=== PATIENT | male | born 1980 | race Caucasian/White ===

== ENCOUNTER 2024-04-12 09:28 | Inpatient (IN) | payer SELFPAY ==
[2024-04-12] MEDS: diazePAM CARPU-JECT 10 MG/2 ML DISP.SYRIN IVPUSH ONE ×2 (09:57→14:09)
[2024-04-12 10:49] LABS: BASO % 0.3 % (0-2.0); HEMATOCRIT 32.8 % (35.4-49); LYMPH % 12.6 % (8-40); MCH 30.3 pg (25.7-33.7); MCHC 33.4 g/dl (32.0-35.9); MEAN CELL VOLUME 90.7 fl (80-96); MEAN PLT VOLUME 9.4 fl (7.5-11.1); MONO % 13.1 % (3.8-10.2); PLATELET COUNT 122 10^3/uL (134-434); RBC 3.62 M/mm3 (4.00-5.60); RDW 19.6 % (11.9-15.9); WHITE BLOOD COUNT 9.5 K/mm3 (4.0-10.0)
[2024-04-12 10:59] LABS: INR 1.13 (0.83-1.09)
[2024-04-12 11:02] LABS: ACTIVATED PTT 27.8 SECONDS (25.2-36.5)
[2024-04-12 11:24] LABS: POTASSIUM 3.2 mmol/L (3.5-5.1)
[2024-04-12 11:26] LABS: ALBUMIN 4.4 g/dl (3.4-5.0); CALCIUM 9.7 mg/dL (8.5-10.1)
[2024-04-12 11:27] LABS: BLOOD UREA NITROGEN 17.7 mg/dL (7-18)
[2024-04-12 11:30] LABS: CREATININE 1.4 mg/dL (0.55-1.3)
[2024-04-12 11:31] LABS: BILIRUBIN,TOTAL 2.2 mg/dL (0.2-1)
[2024-04-12] MEDS: SODIUM CHLORIDE 0.9% 500 ML INFUS.BAG IV ONE (11:40)
[2024-04-12 11:46] LABS: MAGNESIUM 1.7 mg/dL (1.8-2.4)
[2024-04-12 13:04] LABS: VENOUS BASE EXCESS -5.2 mmol/L (-2-2); VENOUS PCO2 34.5 mmHg (38-52); VENOUS PH 7.369 (7.310-7.410)
[2024-04-12] MEDS ORDERED: THIAMINE HCL 200 MG/2 ML VIAL ONE (13:35)
[2024-04-12] MEDS ORDERED: diazePAM CARPU-JECT 10 MG/2 ML DISP.SYRIN ONE (13:35)
[2024-04-12] MEDS ORDERED: POTASSIUM CHLORIDE TABS 20 MEQ TABLET.ER (FP) PO ONE (13:36)
[2024-04-12] MEDS ORDERED: MAGNESIUM SULFATE IN WATER 2 GM/50 ML IVPB IVPB ONE (13:36)
[2024-04-12] MEDS ORDERED: FOLIC ACID 1 MG TABLET (FP) ONE (13:36)
[2024-04-12] MEDS: THIAMINE HCL 200 MG/2 ML VIAL IVPB ONE (14:09)
[2024-04-12] MEDS: MAGNESIUM SULF 50% (8.12 MEQ/2 ML-1 GM VIAL) IVPB ONE (14:09)
[2024-04-12] MEDS: POTASSIUM CHLORIDE TABS 20 MEQ TABLET.ER (FP) PO ONE ×2 (14:09→17:35)
[2024-04-12] MEDS: LACTATED RINGERS SOLUTION 1000 ML INFUS.BAG IV ONE (14:09)
[2024-04-12] MEDS: FOLIC ACID 1 MG TABLET (FP) PO ONE (14:09)
[2024-04-12 15:48] LABS: POTASSIUM 3.4 mmol/L (3.5-5.1)
[2024-04-12 15:50] LABS: BLOOD UREA NITROGEN 11.7 mg/dL (7-18); CALCIUM 8.9 mg/dL (8.5-10.1)
[2024-04-12 15:54] LABS: CREATININE 0.5 mg/dL (0.55-1.3)
[2024-04-12] MEDS: LACTATED RINGERS SOLUTION 1,000 ML/1,000 ML INFUS.BAG IV SCH (16:00)
[2024-04-12] MEDS: LORazepam 1 MG TABLET PO SCH (17:35)
[2024-04-12 17:56] VITALS: BMI 24.9
[2024-04-12] MEDS: THIAMINE HCL 200 MG/2 ML VIAL IVPB SCH (21:40)
[2024-04-12] MEDS: HEPARIN NA (PORCINE) 5,000 UNITS/ML 1ML VIAL SQ SCH (21:42)
[2024-04-13] MEDS: MULTIVITAMINS (DAILY MVI) TABLET (FP) PO SCH (10:14)
[2024-04-13] MEDS: FOLIC ACID 1 MG TABLET (FP) PO SCH (10:15)
[2024-04-13 10:52] LABS: POTASSIUM 3.2 mmol/L (3.5-5.1)
[2024-04-13 10:53] LABS: BASO % 0.9 % (0-2.0); EOS % 1.1 % (0-4.5); HEMATOCRIT 30.3 % (35.4-49); HEMOGLOBIN 9.9 GM/dL (11.7-16.9); LYMPH % 27.9 % (8-40); MCH 30.7 pg (25.7-33.7); MCHC 32.7 g/dl (32.0-35.9); MEAN PLT VOLUME 9.1 fl (7.5-11.1); NEUT % 53.1 % (42.8-82.8); PLATELET COUNT 91 10^3/uL (134-434); RBC 3.22 M/mm3 (4.00-5.60); RDW 19.8 % (11.9-15.9); WHITE BLOOD COUNT 3.4 K/mm3 (4.0-10.0)
[2024-04-13 10:54] LABS: ALBUMIN 3.8 g/dl (3.4-5.0); CALCIUM 8.9 mg/dL (8.5-10.1)
[2024-04-13 10:55] LABS: BLOOD UREA NITROGEN 9.7 mg/dL (7-18); MAGNESIUM 2.1 mg/dL (1.8-2.4)
[2024-04-13 10:58] LABS: CREATININE 0.5 mg/dL (0.55-1.3)
[2024-04-13 10:59] LABS: BILIRUBIN,TOTAL 1.1 mg/dL (0.2-1); TOT PROT 7.7 g/dl (6.4-8.2)
[2024-04-13] MEDS: PANTOPRAZOLE 40 MG TABLET PO SCH (12:11)
[2024-04-13] MEDS: POTASSIUM CHLORIDE TABS 10 MEQ TABLET.ER (FP) PO SCH (12:11)
[2024-04-13] MEDS: LACTULOSE 20 GM/30 ML UDC (FOR ORAL USE ONLY) PO PRN (12:11)
[2024-04-13 15:01] LABS: PH,URINE 6.5 (5.0-8.0); URINE APPEARANCE CLEAR; URINE BILIRUBIN NEGATIVE (NEGATIVE); URINE COLOR YELLOW; URINE GLUCOSE (UA) NEGATIVE (NEGATIVE); URINE KETONE 1+ (NEGATIVE); URINE LEUK ESTERASE NEGATIVE (NEGATIVE); URINE NITRITE NEGATIVE (NEGATIVE); URINE PROTEIN NEGATIVE (NEGATIVE)
[2024-04-13 15:11] LABS: METHADONE, UR NEGATIVE (NEGATIVE); OPIATES, URI NEGATIVE (NEGATIVE); URINE BARBITURATES NEGATIVE (NEGATIVE)
[2024-04-13 15:12] LABS: PHENCYCLIDINE,URINE NEGATIVE (NEGATIVE)
[2024-04-13 15:15] LABS: COCAINE, UR NEGATIVE (NEGATIVE); URINE AMPHETAMINES NEGATIVE (NEGATIVE); URINE BENZODIAZEPINES POSITIVE (NEGATIVE)
[2024-04-14] MEDS: LORazepam 1 MG TABLET PO SCH (06:49)
[2024-04-14 09:14] LABS: BASO % 1.3 % (0-2.0); EOS % 0.7 % (0-4.5); HEMATOCRIT 30.9 % (35.4-49); HEMOGLOBIN 10.2 GM/dL (11.7-16.9); LYMPH % 27.3 % (8-40); MCH 30.7 pg (25.7-33.7); MCHC 33.1 g/dl (32.0-35.9); MEAN CELL VOLUME 92.7 fl (80-96); MONO % 15.1 % (3.8-10.2); NEUT % 55.6 % (42.8-82.8); PLATELET COUNT 118 10^3/uL (134-434); RBC 3.33 M/mm3 (4.00-5.60); WHITE BLOOD COUNT 4.7 K/mm3 (4.0-10.0)
[2024-04-14 09:36] LABS: POTASSIUM 3.5 mmol/L (3.5-5.1)
[2024-04-14] MEDS: POTASSIUM CHLORIDE TABS 20 MEQ TABLET.ER (FP) PO SCH (09:43)
[2024-04-14 09:50] LABS: ALBUMIN 3.7 g/dl (3.4-5.0)
[2024-04-14 09:51] LABS: CALCIUM 9.3 mg/dL (8.5-10.1)
[2024-04-14 09:52] LABS: BLOOD UREA NITROGEN 4.9 mg/dL (7-18)
[2024-04-14 09:55] LABS: BILIRUBIN,TOTAL 0.8 mg/dL (0.2-1); CREATININE 0.5 mg/dL (0.55-1.3); TOT PROT 7.5 g/dl (6.4-8.2)
[2024-04-14] MEDS: THIAMINE 100 MG TABLET PO SCH (11:23)
[2024-04-14] MEDS: LORazepam 1 MG TABLET PO PRN (19:26)
[2024-04-15] MEDS ORDERED: LORazepam 0.5 MG TABLET PO PRN
[2024-04-15] MEDS: LORazepam 0.5 MG TABLET PO SCH (05:10)
[2024-04-15 10:33] LABS: BASO % 0.9 % (0-2.0); EOS % 0.2 % (0-4.5); HEMATOCRIT 33.2 % (35.4-49); HEMOGLOBIN 11.2 GM/dL (11.7-16.9); LYMPH % 25.8 % (8-40); MCH 31.3 pg (25.7-33.7); MCHC 33.7 g/dl (32.0-35.9); MEAN CELL VOLUME 93.1 fl (80-96); MEAN PLT VOLUME 9.7 fl (7.5-11.1); NEUT % 57.1 % (42.8-82.8); PLATELET COUNT 178 10^3/uL (134-434); RBC 3.57 M/mm3 (4.00-5.60)
[2024-04-15 10:45] LABS: POTASSIUM 3.6 mmol/L (3.5-5.1)
[2024-04-15 10:51] LABS: ALBUMIN 4.1 g/dl (3.4-5.0)
[2024-04-15 10:54] LABS: BLOOD UREA NITROGEN 10.7 mg/dL (7-18); CALCIUM 9.8 mg/dL (8.5-10.1); CREATININE 0.7 mg/dL (0.55-1.3)
[2024-04-15 10:55] LABS: BILIRUBIN,TOTAL 0.6 mg/dL (0.2-1); TOT PROT 8.6 g/dl (6.4-8.2)
[2024-04-15 11:52] LABS: ANISOCYTOSIS 1+; MACROCYTOSIS 1+
[2024-04-15] MEDS: LACTULOSE 20 GM/30 ML UDC (FOR ORAL USE ONLY) PO SCH (14:07)
[2024-04-15] MEDS: THIAMINE 100 MG TABLET PO SCH (21:50)
[2024-04-16] MEDS: LORazepam 0.5 MG TABLET PO ONE ×2 (05:32→13:33)
[2024-04-16] MEDS: THIAMINE 100 MG TABLET PO ONE (13:34)
[2024-04-16] MEDS ORDERED: THIAMINE HCL 200 MG/2 ML VIAL IVPB SCH (14:00)
[2024-04-16 14:45] VITALS: BP 106/77; PULSE 82; RESP 18; TEMP 98.8
== END 2024-04-16 15:00 | disposition home or self-care (01) | DRG 775 ==
LOC: JER 09:28 → JERBED 15:14 → OBSVTOIN 16:16 → J8W 17:01
PROVIDERS: ADMIT Internal Medicine; ATTEND Nurse Practitioner Family
DX: F10.251 Alcohol dependence with alcohol-induced psychotic disorder with hallucinations (principal); N17.9 Acute kidney failure, unspecified; F10.231 Alcohol dependence with withdrawal delirium; F10.239 Alcohol dependence with withdrawal, unspecified; K70.30 Alcoholic cirrhosis of liver without ascites; D69.6 Thrombocytopenia, unspecified; E51.2 Wernicke's encephalopathy; E87.1 Hypo-osmolality and hyponatremia; E87.6 Hypokalemia; E83.42 Hypomagnesemia; K76.82 Hepatic encephalopathy; D64.9 Anemia, unspecified; R41.82 Altered mental status, unspecified
CPT/HCPCS: 36415; 70450-TC; 71046-TC-FY; 74178-TC; 76705-TC; 80048; 80053; 80307; 81003; 82010; 82140; 82248; 82550; 82570; 82607; 82728; 82803; 82962; 82977; 83540; 83550; 83605; 83735; 84100; 84156; 84300; 84443; 84484; 85025; 85610; 85730; 86780; 86850; 86900; 86901; 99291; G0378; J1644; Q9967

== ENCOUNTER 2024-05-23 03:13 | Inpatient (IN) | payer SELFPAY ==
[2024-05-23 03:19] VITALS: BMI 29.2
[2024-05-23] MEDS: LACTATED RINGERS SOLUTION 1000 ML INFUS.BAG IV ONE ×2 (04:00→09:03)
[2024-05-23] MEDS ORDERED: THIAMINE HCL 200 MG/2 ML VIAL ONE (06:49)
[2024-05-23] MEDS: THIAMINE HCL 200 MG/2 ML VIAL IVPB ONE (06:53)
[2024-05-23] MEDS: FOLIC ACID 5 MG/1 ML SQ ONE (07:00)
[2024-05-23 07:25] LABS: HEMATOCRIT 32.4 % (35.4-49); HEMOGLOBIN 10.6 GM/dL (11.7-16.9); LYMPH % 10.1 % (8-40); MCH 28.5 pg (25.7-33.7); MCHC 32.7 g/dl (32.0-35.9); MEAN CELL VOLUME 87.1 fl (80-96); MEAN PLT VOLUME 7.8 fl (7.5-11.1); MONO % 6.1 % (3.8-10.2); NEUT % 82.8 % (42.8-82.8); PLATELET COUNT 411 10^3/uL (134-434); RBC 3.72 M/mm3 (4.00-5.60); RDW 21.5 % (11.9-15.9); WHITE BLOOD COUNT 10.9 K/mm3 (4.0-10.0)
[2024-05-23 07:31] LABS: INR 1.14 (0.83-1.09); PROTHROMBIN TIME (PATIENT) 12.8 SEC (9.7-13.0)
[2024-05-23 07:34] LABS: ACTIVATED PTT 31.2 SECONDS (25.2-36.5)
[2024-05-23 07:42] LABS: POTASSIUM 3.5 mmol/L (3.5-5.1)
[2024-05-23 07:43] LABS: CALCIUM 8.3 mg/dL (8.5-10.1)
[2024-05-23 07:44] LABS: ALBUMIN 3.4 g/dl (3.4-5.0); BLOOD UREA NITROGEN 4.4 mg/dL (7-18); MAGNESIUM 1.7 mg/dL (1.8-2.4)
[2024-05-23 07:47] LABS: CREATININE 0.6 mg/dL (0.55-1.3)
[2024-05-23 07:49] LABS: BILIRUBIN,TOTAL 0.4 mg/dL (0.2-1); TOT PROT 7.8 g/dl (6.4-8.2)
[2024-05-23] MEDS ORDERED: MAGNESIUM SULFATE IN WATER 2 GM/50 ML IVPB IVPB ONE (08:10)
[2024-05-23] MEDS: MAGNESIUM SULFATE IN WATER 2 GM/50 ML IVPB IVPB ONE (08:27)
[2024-05-23] MEDS: SODIUM CHLORIDE 0.9% 500 ML INFUS.BAG IV ONE (09:03)
[2024-05-23 09:35] LABS: ANISOCYTOSIS 3+; MACROCYTOSIS 0
[2024-05-23] MEDS ORDERED: diazePAM CARPU-JECT 10 MG/2 ML DISP.SYRIN ONE ×2 (10:37→13:58)
[2024-05-23] MEDS: diazePAM CARPU-JECT 10 MG/2 ML DISP.SYRIN IVPUSH ONE ×4 (10:49→14:08)
[2024-05-23 11:11] LABS: PHOSPHOROUS 4.6 mg/dL (2.5-4.9)
[2024-05-23] MEDS ORDERED: ACETAMINOPHEN INJECTION 100 ML ONE (12:07)
[2024-05-23] MEDS: ACETAMINOPHEN 1000 MG/100 ML BAG IVPB ONE ×2 (12:13→19:55)
[2024-05-23 13:38] LABS: PH,URINE 5.5 (5.0-8.0); URINE APPEARANCE CLEAR; URINE BILIRUBIN NEGATIVE (NEGATIVE); URINE COLOR YELLOW; URINE GLUCOSE (UA) NEGATIVE (NEGATIVE); URINE KETONE 1+ (NEGATIVE); URINE LEUK ESTERASE NEGATIVE (NEGATIVE); URINE NITRITE NEGATIVE (NEGATIVE); URINE PROTEIN NEGATIVE (NEGATIVE); URINE UROBILINOGEN 0.2 mg/dL (0.2-1.0)
[2024-05-23 13:51] LABS: COCAINE, UR NEGATIVE (NEGATIVE); METHADONE, UR NEGATIVE (NEGATIVE); URINE BARBITURATES NEGATIVE (NEGATIVE)
[2024-05-23 13:52] LABS: OPIATES, URI NEGATIVE (NEGATIVE); PHENCYCLIDINE,URINE NEGATIVE (NEGATIVE)
[2024-05-23 13:53] LABS: URINE AMPHETAMINES NEGATIVE (NEGATIVE); URINE BENZODIAZEPINES POSITIVE (NEGATIVE)
[2024-05-23] MEDS ORDERED: VANCOMYCIN 1 GRAM (PRE-DOCKED) 1,000 MG/250 ML BAG IVPB ONE (17:18)
[2024-05-23] MEDS ORDERED: chlordiazePOXIDE HCL 25 MG CAPSULE ONE ×3 (17:18→23:18)
[2024-05-23] MEDS: VANCOMYCIN/WATER FOR INJ (PEG) 1,000 MG/200 ML BAG IVPB SCH (17:27)
[2024-05-23] MEDS: chlordiazePOXIDE HCL 25 MG CAPSULE PO SCH (17:27)
[2024-05-23] MEDS: FOLIC ACID INJECTION - 1 MG, THIAMINE HCL 100 MG, MULTIVIT INJECTION ADULT 10 ML in SOD... IVPB ONE (19:27)
[2024-05-23] MEDS: chlordiazePOXIDE HCL 25 MG CAPSULE PO PRN (19:55)
[2024-05-23] MEDS ORDERED: THIAMINE 100 MG TABLET PO SCH (22:00)
[2024-05-23] MEDS ORDERED: LACTULOSE 20 GM/30 ML UDC (FOR ORAL USE ONLY) ONE (22:05)
[2024-05-23] MEDS: LACTULOSE 20 GM/30 ML UDC (FOR ORAL USE ONLY) PO SCH (22:22)
[2024-05-24] MEDS ORDERED: VANCOMYCIN 1 GRAM (PRE-DOCKED) 1,000 MG/250 ML BAG IVPB ONE (05:04)
[2024-05-24] MEDS ORDERED: chlordiazePOXIDE HCL 25 MG CAPSULE ONE ×3 (05:06→16:00)
[2024-05-24] MEDS ORDERED: LACTULOSE 20 GM/30 ML UDC (FOR ORAL USE ONLY) ONE ×2 (05:37→15:33)
[2024-05-24 08:13] LABS: BASO % 0.8 % (0-2.0); EOS % 0.2 % (0-4.5); HEMATOCRIT 28.3 % (35.4-49); HEMOGLOBIN 9.2 GM/dL (11.7-16.9); LYMPH % 12.8 % (8-40); MCHC 32.4 g/dl (32.0-35.9); MEAN CELL VOLUME 86.2 fl (80-96); MEAN PLT VOLUME 8.4 fl (7.5-11.1); MONO % 7.1 % (3.8-10.2); NEUT % 79.1 % (42.8-82.8); PLATELET COUNT 260 10^3/uL (134-434); RBC 3.28 M/mm3 (4.00-5.60); RDW 21.6 % (11.9-15.9); WHITE BLOOD COUNT 10.6 K/mm3 (4.0-10.0)
[2024-05-24 08:16] LABS: ADD RBC MORPHOLOGY YES
[2024-05-24 08:29] LABS: POTASSIUM 3.1 mmol/L (3.5-5.1)
[2024-05-24 08:31] LABS: ALBUMIN 2.8 g/dl (3.4-5.0)
[2024-05-24 08:32] LABS: BLOOD UREA NITROGEN 6.6 mg/dL (7-18)
[2024-05-24 08:35] LABS: CREATININE 0.5 mg/dL (0.55-1.3); PHOSPHOROUS 2.6 mg/dL (2.5-4.9)
[2024-05-24 08:36] LABS: BILIRUBIN,TOTAL 0.6 mg/dL (0.2-1); TOT PROT 6.7 g/dl (6.4-8.2)
[2024-05-24] MEDS ORDERED: ENOXAPARIN NA (PORCINE) 40 MG/0.4 ML DISP.SYRIN SQ ONE (09:24)
[2024-05-24] MEDS: THIAMINE 100 MG TABLET PO SCH (09:26)
[2024-05-24] MEDS: ENOXAPARIN NA (PORCINE) 40 MG/0.4 ML DISP.SYRIN SQ SCH (09:26)
[2024-05-24] MEDS: FOLIC ACID 1 MG TABLET (FP) PO SCH (09:26)
[2024-05-24] MEDS: PANTOPRAZOLE 40 MG TABLET PO SCH (09:26)
[2024-05-24] MEDS: POTASSIUM CHLORIDE ORAL LIQUID 20 MEQ/15 ML PO ONE (11:01)
[2024-05-24] MEDS ORDERED: ceFAZolin SODIUM 1 GM VIAL ONE (16:00)
[2024-05-24] MEDS: CEFAZOLIN 1 GM in DEXTROSE 5%-WATER - 50 ML IVPB SCH (16:18)
[2024-05-24] MEDS: VANCOMYCIN 1,000 MG in DEXTROSE 5%-WATER - 250 ML IVPB SCH (16:34)
[2024-05-25] MEDS: chlordiazePOXIDE HCL 25 MG CAPSULE PO SCH (05:48)
[2024-05-25 07:39] LABS: BASO % 0.8 % (0-2.0); EOS % 1.5 % (0-4.5); HEMATOCRIT 29.3 % (35.4-49); HEMOGLOBIN 9.6 GM/dL (11.7-16.9); LYMPH % 22.2 % (8-40); MCH 28.7 pg (25.7-33.7); MCHC 32.9 g/dl (32.0-35.9); MEAN CELL VOLUME 87.2 fl (80-96); MEAN PLT VOLUME 8.2 fl (7.5-11.1); MONO % 10.2 % (3.8-10.2); NEUT % 65.3 % (42.8-82.8); PLATELET COUNT 255 10^3/uL (134-434); RBC 3.36 M/mm3 (4.00-5.60); RDW 21.2 % (11.9-15.9); WHITE BLOOD COUNT 7.5 K/mm3 (4.0-10.0)
[2024-05-25 08:05] LABS: POTASSIUM 3.4 mmol/L (3.5-5.1)
[2024-05-25 08:08] LABS: BLOOD UREA NITROGEN 4.3 mg/dL (7-18)
[2024-05-25 08:09] LABS: CALCIUM 8.7 mg/dL (8.5-10.1)
[2024-05-25 08:11] LABS: CREATININE 0.5 mg/dL (0.55-1.3)
[2024-05-25 14:43] VITALS: BP 100/92; PULSE 85; RESP 18; TEMP 98.1
[2024-05-25] MEDS: POTASSIUM CHLORIDE TABS 20 MEQ TABLET.ER (FP) PO ONE (15:44)
[2024-05-26] MEDS ORDERED: chlordiazePOXIDE HCL 10 MG CAPSULE PO PRN
[2024-05-26] MEDS ORDERED: chlordiazePOXIDE HCL 10 MG CAPSULE PO SCH (05:00)
[2024-05-27] MEDS ORDERED: chlordiazePOXIDE HCL 10 MG CAPSULE PO SCH (05:00)
[2024-05-28] MEDS ORDERED: chlordiazePOXIDE HCL 10 MG CAPSULE PO ONE (05:00)
== END 2024-05-25 16:27 | disposition home or self-care (01) | DRG 383 ==
LOC: JER 03:13 → JERBED 15:55 → J4W 05-24 17:30
PROVIDERS: ADMIT Internal Medicine; ATTEND Internal Medicine
DX: L03.113 Cellulitis of right upper limb (principal); L03.114 Cellulitis of left upper limb; R65.10 Systemic inflammatory response syndrome (SIRS) of non-infectious origin without acute organ dysfunction; B96.1 Klebsiella pneumoniae [K. pneumoniae] as the cause of diseases classified elsewhere; E87.6 Hypokalemia; F10.220 Alcohol dependence with intoxication, uncomplicated; F10.239 Alcohol dependence with withdrawal, unspecified; R00.0 Tachycardia, unspecified
CPT/HCPCS: 0241U-QW; 36415; 71045-TC-FY; 80048; 80053; 80307; 81003; 82140; 83735; 84100; 84439; 84443; 84484; 85025; 85610; 85730; 87040; 87086; 87186; 93005; 93010; 99285-25; J0131

== ENCOUNTER 2024-10-31 11:50 | Inpatient (IN) | payer SELFPAY ==
[2024-10-31] MEDS ORDERED: diazePAM CARPU-JECT 10 MG/2 ML DISP.SYRIN ONE (13:20)
[2024-10-31 13:25] LABS: ABSOLUTE IMMATURE GRANULOCYTES 0.02 x10^3/uL (0.0-0.031); BASOPHILS # 0.06 x10^3/uL (0.01-0.08); EOSINOPHIL % 0.3 % (0.8-7.0); EOSINOPHILS # 0.02 x10^3/uL (0.04-0.54); HEMATOCRIT 41.4 % (40.1-51.0); HEMOGLOBIN 12.6 g/dL (13.7-17.5); MCHC 30.4 g/dl (32.3-36.5); MEAN CELL VOLUME 83.5 fl (79.0-92.2); MEAN PLT VOLUME 10.3 fl (9.4-12.4); MONOCYTE # 0.45 x10^3/uL (0.30-0.82); MONOCYTE % 7.8 % (5.3-12.2); PLATELET COUNT 353 x10^3/uL (163-337); RDW 18.8 % (12.1-15.9)
[2024-10-31] MEDS: diazePAM CARPU-JECT 10 MG/2 ML DISP.SYRIN IVPUSH ONE (13:29)
[2024-10-31 13:39] LABS: ACTIVATED PTT 32.2 SECONDS (25.2-36.5); INR 1.08 (0.83-1.09); PROTHROMBIN TIME (PATIENT) 11.8 SEC (9.7-13.0)
[2024-10-31 13:53] LABS: CHLORIDE 101 mmol/L (98-107); POTASSIUM 3.7 mmol/L (3.5-5.1); SODIUM 136 mmol/L (136-145)
[2024-10-31 13:55] LABS: ANION GAP 7 mmol/L (4-13); BLOOD UREA NITROGEN 7.1 mg/dL (7-18); CALCIUM 9.4 mg/dL (8.5-10.1); CO2 28 mmol/L (21-32); GLUCOSE,RANDOM 103 mg/dL (74-106); MAGNESIUM 2.2 mg/dL (1.8-2.4)
[2024-10-31 13:58] LABS: SGOT/AST 43 U/L (15-37); SGPT/ALT 54 U/L (13-61)
[2024-10-31 14:00] LABS: BILIRUBIN,TOTAL 0.5 mg/dL (0.2-1)
[2024-10-31 14:01] LABS: ALK PHOS 132 U/L (45-117)
[2024-10-31 14:46] LABS: CREATININE 0.6 mg/dL (0.55-1.3)
[2024-10-31] MEDS ORDERED: chlordiazePOXIDE HCL 25 MG CAPSULE PO SCH (19:00)
[2024-10-31] MEDS: chlordiazePOXIDE HCL 25 MG CAPSULE PO SCH (20:47)
[2024-10-31] MEDS: FOLIC ACID INJECTION - 1 MG, THIAMINE HCL 100 MG, MULTIVIT INJECTION ADULT 10 ML in SOD... IVPB ONE (22:04)
[2024-11-01 00:40] VITALS: BMI 25.2
[2024-11-01] MEDS: chlordiazePOXIDE HCL 25 MG CAPSULE PO PRN (00:46)
[2024-11-01 07:59] LABS: HEMOGLOBIN 10.1 g/dL (13.7-17.5); MCHC 30.6 g/dl (32.3-36.5); MEAN PLT VOLUME 10.6 fl (9.4-12.4); PLATELET COUNT 316 x10^3/uL (163-337); RDW 18.8 % (12.1-15.9)
[2024-11-01 08:18] LABS: POTASSIUM 3.9 mmol/L (3.5-5.1)
[2024-11-01 08:32] LABS: CALCIUM 8.7 mg/dL (8.5-10.1)
[2024-11-01 08:33] LABS: BLOOD UREA NITROGEN 7.4 mg/dL (7-18); MAGNESIUM 1.9 mg/dL (1.8-2.4)
[2024-11-01 08:35] LABS: CREATININE 0.5 mg/dL (0.55-1.3); PHOSPHOROUS 3.6 mg/dL (2.5-4.9)
[2024-11-01] MEDS: THIAMINE 100 MG TABLET PO SCH (09:31)
[2024-11-01] MEDS: FOLIC ACID 1 MG TABLET (FP) PO SCH (09:31)
[2024-11-01] MEDS: BACITRACIN ZINC 15 GM TUBE TOPICAL OINTMENT TP SCH (11:25)
[2024-11-02] MEDS: chlordiazePOXIDE HCL 25 MG CAPSULE PO SCH (05:50)
[2024-11-02 07:54] LABS: HEMATOCRIT 34.8 % (40.1-51.0); HEMOGLOBIN 10.5 g/dL (13.7-17.5); MCHC 30.2 g/dl (32.3-36.5); MEAN CELL VOLUME 83.9 fl (79.0-92.2); MEAN PLT VOLUME 10.8 fl (9.4-12.4); PLATELET COUNT 319 x10^3/uL (163-337)
[2024-11-02 08:12] LABS: POTASSIUM 3.9 mmol/L (3.5-5.1)
[2024-11-02 08:22] LABS: BLOOD UREA NITROGEN 10.1 mg/dL (7-18); CALCIUM 8.9 mg/dL (8.5-10.1)
[2024-11-02 08:23] LABS: ALBUMIN 3.2 g/dl (3.4-5.0)
[2024-11-02 08:24] LABS: CREATININE 0.5 mg/dL (0.55-1.3)
[2024-11-02 08:26] LABS: BILIRUBIN,TOTAL 0.2 mg/dL (0.2-1); TOT PROT 7.2 g/dl (6.4-8.2)
[2024-11-02] MEDS: ENOXAPARIN NA (PORCINE) 40 MG/0.4 ML DISP.SYRIN SQ SCH (09:37)
[2024-11-02 11:02] LABS: HIV INTERPRETATION NEGATIVE (NEGATIVE)
[2024-11-02] MEDS: LORazepam 2 MG/ML SDV VIAL IVPUSH ONE (17:50)
[2024-11-03] MEDS ORDERED: chlordiazePOXIDE HCL 10 MG CAPSULE PO PRN
[2024-11-03] MEDS: chlordiazePOXIDE HCL 10 MG CAPSULE PO SCH (07:22)
[2024-11-04] MEDS: chlordiazePOXIDE HCL 10 MG CAPSULE PO SCH (05:04)
[2024-11-04 07:37] LABS: BLOOD UREA NITROGEN 10.2 mg/dL (7-18); CALCIUM 9.5 mg/dL (8.5-10.1); MAGNESIUM 2.1 mg/dL (1.8-2.4)
[2024-11-04 07:41] LABS: CREATININE 0.5 mg/dL (0.55-1.3)
[2024-11-04 09:10] VITALS: BP 113/79; PULSE 89; RESP 17; TEMP 98.2
[2024-11-05] MEDS ORDERED: chlordiazePOXIDE HCL 10 MG CAPSULE PO ONE (05:00)
== END 2024-11-04 13:53 | disposition home or self-care (01) | DRG 775 ==
LOC: JER 11:50 → JERBED 16:32 → J4W 18:53
PROVIDERS: ADMIT Student in an Organized Health Care Education/Training Program; ATTEND Student in an Organized Health Care Education/Training Program
PROC: HZ2ZZZZ Detoxification Services for Substance Abuse Treatment (ICD-10-PCS; principal; 2024-10-31)
DX: F10.231 Alcohol dependence with withdrawal delirium (principal); K74.60 Unspecified cirrhosis of liver; L08.9 Local infection of the skin and subcutaneous tissue, unspecified; R44.3 Hallucinations, unspecified; Z59.00 Homelessness unspecified
CPT/HCPCS: 0241U-QW; 36415; 70450-TC; 71045-TC-FY; 80048; 80053; 80307; 82140; 82962; 83690; 83735; 84100; 84484; 85025; 85027; 85610; 85730; 87389; 93005; 93010; 93971-TC; 99285-25

== ENCOUNTER 2025-02-10 04:37 | Emergency (ER) | payer OTHER ==
[2025-02-10 05:10] VITALS: BP 119/86; PULSE 82; RESP 18; TEMP 98.2; BMI 28.3
== END 2025-02-10 07:07 | disposition left against medical advice (07) ==
LOC: JER 04:37
DX: Z53.21 Procedure and treatment not carried out due to patient leaving prior to being seen by health care provider (principal)
CPT/HCPCS: 99281-25